=== PATIENT | female | born 1945 | race Caucasian/White ===

== ENCOUNTER 2017-09-23 17:33 | Outpatient (CLI) | payer MEDICARE, MEDICAID ==
--- NOTE | 2017-09-23 18:58 | RAD ---
RIGHT HIP THREE VIEWS: HISTORY: Fall from porch with injury to right hip. Hip pain. FINDINGS: Mild degenerative change at the hip with minimal spurring from the femoral head. No evidence of frac ture identified. IMPRESSION: No acute fracture identified. POS: [facility]
== END 2017-09-23 17:34 | disposition home or self-care (01) ==
LOC: NAV RAD 17:33
PROVIDERS: ATTEND Nurse Practitioner Family
DX: M25.551 Pain in right hip (principal)

== ENCOUNTER 2018-11-05 10:55 | Outpatient (CLI) | payer MEDICARE, OTHER ==
--- NOTE | 2018-11-05 11:24 | RAD ---
EXAM: 3 views of the right shoulder HISTORY: Shoulder pain COMPARISON: None FINDINGS: There is no evidence of acute fracture or dislocation. No degenerative changes are present. No soft tissue swelling is seen. The visualized thorax is unremarkable. IMPRESSION: No evidence of acute osseous abnormality.
== END 2018-11-05 10:56 | disposition home or self-care (01) ==
LOC: NAV RAD 10:55
PROVIDERS: ATTEND Nurse Practitioner Family
DX: M25.511 Pain in right shoulder (principal)

== ENCOUNTER 2018-11-19 12:02 | Outpatient (CLI) | payer MEDICARE, OTHER ==
--- NOTE | 2018-11-19 12:23 | RAD ---
LUMBAR SPINE 3 VIEWS: HISTORY: Spinal stenosis. Back pain. FINDINGS: There are multilevel degenerative changes. No acute fracture, subluxation or bony destruction is seen . There are vascular calcifications. There are postoperative changes of cholecystectomy. There is a radiopaque wire-like density in the right upper quadrant measuring about 2 cm. This may re present a foreign body. Clinical correlation is recommended.
== END 2018-11-19 12:03 | disposition home or self-care (01) ==
LOC: NAV RAD 12:02 → EDBD 12:02 → NAV RAD 12:03
PROVIDERS: ATTEND Nurse Practitioner Family
DX: Z87.39 Personal history of other diseases of the musculoskeletal system and connective tissue (principal)
CPT/HCPCS: 72100

== ENCOUNTER 2018-12-01 08:02 | Outpatient (CLI) | payer MEDICARE, OTHER ==
--- NOTE | 2018-12-01 11:01 | ULT ---
SOFT TISSUE ULTRASOUND ABDOMINAL WALL: Date: 12/01/18 INDICATION: Wire-like foreign body density seen overlying the right upper quadrant on recent plain film. FINDINGS: No abnormality identified in the subcutaneous tissues by ultrasound. IMPRESSION: Unremarkable soft tissue ultrasound right upper quadrant. POS: [facility]
== END 2018-12-01 08:03 | disposition home or self-care (01) ==
LOC: NAV ULT 08:02
PROVIDERS: ATTEND Nurse Practitioner Family
DX: S30.851A Superficial foreign body of abdominal wall, initial encounter (principal)
CPT/HCPCS: 76705